=== PATIENT | male | born 1995 | race Hispanic/Latino ===

== ENCOUNTER 2019-09-23 18:42 | Emergency (ER) | payer SELFPAY ==
[2019-09-23] MEDS ORDERED: Proparacaine 0.5% Opth 15 ML BOT ONE (20:21)
[2019-09-23] MEDS ORDERED: Fluorescein Opthalmic Strip ONE (20:21)
[2019-09-23] MEDS ORDERED: Cyclopentolate 1% Opth Drop 2 ML BOT ONE (20:57)
[2019-09-23] MEDS ORDERED: prednisoLONE 1% Ophth Susp 5 ml Bottle R EYE SCH (21:00)
== END 2019-09-23 22:45 | disposition home or self-care (01) ==
LOC: ERS 18:42
DX: H57.11 Ocular pain, right eye (principal)
CPT/HCPCS: 99283

== ENCOUNTER 2021-11-18 23:09 | Emergency (ER) | payer OTHER, SELFPAY ==
[2021-11-18] MEDS ORDERED: diphenhydrAMINE 50 MG CAP ONE (23:46)
[2021-11-19] MEDS ORDERED: Famotidine 20 MG TAB ONE (00:04)
== END 2021-11-19 01:15 | disposition home or self-care (01) ==
LOC: ERS 23:09
DX: T78.1XXA Other adverse food reactions, not elsewhere classified, initial encounter (principal)
CPT/HCPCS: 99283